=== PATIENT | female | born 1995 | race Caucasian/White ===

== ENCOUNTER → 2018-04-13 | Outpatient (CLI) | payer OTHER ==
[~2018-04-13] MED LIST: OMNIPAQUE 350 MG/ML, 100ML BOTTLE ONE; PREN1TAB27 PO
== END | disposition home or self-care (01) ==
LOC: RAD 18:14
PROVIDERS: ATTEND Physician Assistant
DX: N83.01 Follicular cyst of right ovary (principal); N83.02 Follicular cyst of left ovary
CPT/HCPCS: 74177; Q9967

== ENCOUNTER 2018-04-14 11:35 | Emergency (ER) | payer OTHER ==
[~2018-04-14] VITALS: Ht 172.7 cm; Wt 64.0 kg
[~2018-04-14 11:35] MED LIST changes: -OMNIPAQUE 350 MG/ML, 100ML BOTTLE ONE
[2018-04-14 12:33] LABS: BASOPHILS # (AUTO) 0.03 x10^3/uL (0-0.1); BASOPHILS % (AUTO) 1 % (0-1); EOSINOPHILS % (AUTO) 2 % (1-7); LYMPHOCYTES # (AUTO) 1.71 x10^3/uL (1-3.4); LYMPHOCYTES % (AUTO) 28 % (22-44); MD NO; MEAN CORPUSCULAR HEMOGLOBIN 30.9 pg (27.0-34.8); MEAN CORPUSCULAR HGB CONC 34.3 g/dL (32.4-35.8); MEAN CORPUSCULAR VOLUME 90.1 fL (80-100); MEAN PLATELET VOLUME 8.6 fL (7.4-10.4); MONOCYTES # (AUTO) 0.52 x10^3/uL (0.2-0.8); MONOCYTES % (AUTO) 9 % (2-9); NEUTROPHILS # (AUTO) 3.77 x10^3/uL (1.8-6.8); NEUTROPHILS % (AUTO) 61 % (42-75); PLATELET COUNT 216 x10^3/uL (130-400); RED BLOOD COUNT 4.45 x10^6/uL (3.82-5.3); RED CELL DISTRIBUTION WIDTH 12.7 % (9.6-15.2)
[2018-04-14 12:39] LABS: CHLORIDE 109 mmol/L (98-107)
[2018-04-14 12:45] LABS: ALBUMIN 3.8 g/dL (3.4-5.0); ANION GAP 7 mmol/L (5-15); CALCIUM 8.5 mg/dL (8.5-10.1)
[2018-04-14 13:07] LABS: ALANINE AMINOTRANSFERASE 17 U/L (12-78); ALKALINE PHOSPHATASE 46 U/L (45-117); CREATININE 0.77 mg/dL (0.55-1.02); TOTAL PROTEIN 7.2 g/dL (6.4-8.2)
[2018-04-14 13:45] LABS: MICROSCOPIC INDICATED
[2018-04-14 13:47] LABS: CULTURE INDICATED? NO
[2018-04-14 14:28] VITALS: BP 118/56
== END 2018-04-14 14:30 | disposition home or self-care (01) ==
LOC: ED 12:20
DX: T65.91XA Toxic effect of unspecified substance, accidental (unintentional), initial encounter (principal); R10.11 Right upper quadrant pain; Y92.89 Other specified places as the place of occurrence of the external cause
CPT/HCPCS: 36415; 76700; 80053; 81001; 83690; 84703; 85025; 99285

== ENCOUNTER → 2018-05-12 | Outpatient (CLI) | payer OTHER | END | disposition home or self-care (01) | LOC: PETCFH 12:14 | PROVIDERS: ATTEND Surgery | DX: K82.8 Other specified diseases of gallbladder (principal) | CPT/HCPCS: 78227; A9537 ==

== ENCOUNTER → 2018-06-16 | Outpatient (CLI) | payer OTHER | END | disposition home or self-care (01) | LOC: STAR 12:31 | PROVIDERS: ATTEND Surgery | DX: Z02.9 Encounter for administrative examinations, unspecified (principal) ==

== ENCOUNTER 2018-06-22 13:58 | Day surgery (SDC) | payer OTHER ==
[~2018-06-22] VITALS: Ht 172.7 cm; Wt 62.8 kg
[2018-06-22] MEDS ORDERED: LACTATED RINGERS 1,000 ML IV SCH ×2 (14:16→14:27)
[2018-06-22 14:59] VITALS: BP 104/64
[2018-06-22] MEDS ORDERED: METOCLOPRAMIDE 5 MG/ML, 2ML IVPush ONE (15:00)
[2018-06-22] MEDS ORDERED: GABAPENTIN 300 MG CAPSULE PO ONE (15:00)
[2018-06-22] MEDS ORDERED: FAMOTIDINE 20 MG/2 ML IVPush ONE (15:00)
[2018-06-22] MEDS ORDERED: LORazepam 2 MG/ML, 1ML IVPush ONE (15:00)
[2018-06-22] MEDS ORDERED: ACETAMINOPHEN 500 MG TABLET PO ONE (15:00)
[2018-06-22 15:36] LABS: HCG UR SG 1.031 (1.003-1.030)
[2018-06-22] MEDS ORDERED: BUPIVACAINE/PF-EPI 0.5% 1:200K ONE (16:06)
[2018-06-22] MEDS ORDERED: ONDANSETRON 2MG/ML, 2ML ONE (16:10)
[2018-06-22] MEDS ORDERED: LIDOCAINE-MPF 2% ,5ML ONE (16:10)
[2018-06-22] MEDS ORDERED: SUCCINYLCHOLINE 20 MG/ML, 10ML ONE (16:10)
[2018-06-22] MEDS ORDERED: DEXAMETHASONE 4 MG/ML, 5ML ONE (16:10)
[2018-06-22] MEDS ORDERED: PROPOFOL 10 MG/ML, 20ML ONE (16:10)
[2018-06-22] MEDS ORDERED: MIDAZOLAM 1 MG/ML, 2ML ONE (16:10)
[2018-06-22] MEDS ORDERED: METOCLOPRAMIDE 5 MG/ML, 2ML ONE (16:10)
[2018-06-22] MEDS ORDERED: CEFAZOLIN 1,000 MG ONE (16:10)
[2018-06-22] MEDS ORDERED: SCOPOLAMINE PATCH, 1.5MG PATCH.TD72 TD ONE (16:10)
[2018-06-22] MEDS ORDERED: FENTANYL PF 100 MCG/2ML ONE ×2 (16:11→17:18)
[2018-06-22] MEDS ORDERED: SUGAMMADEX 200 MG/2 ML IVPush ONE (17:02)
[2018-06-22] MEDS ORDERED: MEPERIDINE/PF 50 MG/ML ONE (17:18)
[2018-06-22] MEDS ORDERED: OXYcodone 5 MG/5 ML ORAL.SOL UDC ONE (17:18)
[2018-06-22] MEDS ORDERED: LABETALOL 5MG/ML, 20ML IV PRN (17:30)
[2018-06-22] MEDS ORDERED: DIPHENHYDRAMINE 50 MG/ML, 1ML IVPush PRN (17:30)
[2018-06-22] MEDS ORDERED: hydrALAzine 20 MG/ML, 1ML IV PRN (17:30)
[2018-06-22] MEDS: MEPERIDINE/PF 25MG/0.5ML IVPush PRN ×3 (17:30→18:00)
[2018-06-22] MEDS ORDERED: HYDROcodone/APAP 5/325 TABLET PO PRN (17:30)
[2018-06-22] MEDS ORDERED: HYDROmorphone 1 MG/ML, 1ML IV PRN (17:30)
[2018-06-22] MEDS ORDERED: ONDANSETRON 2MG/ML, 2ML IV PRN (17:30)
[2018-06-22] MEDS ORDERED: morphine SULFATE 10 MG/ML, 1ML IVPush PRN (17:30)
[2018-06-22] MEDS ORDERED: PROMETHAZINE 12.5 MG SUPP PR PRN (17:30)
[2018-06-22] MEDS ORDERED: ONDANSETRON ODT 8 MG PO PRN (17:30)
[2018-06-22] MEDS ORDERED: ONDANSETRON 2MG/ML, 2ML IVPush PRN (17:30)
[2018-06-22] MEDS ORDERED: OXYcodone 5 MG/5 ML ORAL.SOL UDC PO PRN (17:30)
[2018-06-22] MEDS ORDERED: KETOROLAC 30 MG/1 ML IVPush PRN (17:30)
[2018-06-22] MEDS: FENTANYL PF 100 MCG/2ML IV PRN ×2 (17:43→17:52)
[2018-06-22] MEDS ORDERED: KETOROLAC 30 MG/1 ML ONE (17:45)
== END 2018-06-22 20:15 | disposition home or self-care (01) ==
LOC: OR 13:58 → 4NOR 18:33 → OR 20:15
PROVIDERS: ATTEND Surgery
DX: K81.1 Chronic cholecystitis (principal); Z88.1 Allergy status to other antibiotic agents; Z88.0 Allergy status to penicillin; Z88.8 Allergy status to other drugs, medicaments and biological substances
CPT/HCPCS: 47562; 81025; 88304; J0330; J0690; J1100; J1885; J2060; J2175; J2250; J2405; J2704; J2765; J3010; J3490; J7120; G0378